=== PATIENT | male | born 1960 | race Caucasian/White ===

== ENCOUNTER 2016-09-27 09:38 | Observation (INO) | payer OTHER ==
[2016-09-27] VITALS (10 sets, daily range): BP systolic 86–168; BP diastolic 48–76; PULSE 64–103; RESP 18–20; TEMP 97.1–98.4; O2SAT 95–98
[~2016-09-27] VITALS: Ht 167.6 cm; Wt 86.4 kg
[~2016-09-27 09:38] MED LIST: ALBU6.7H INH; ASPI81TA82 PO; CIPR500T4 PO; NORV10TA PO
[2016-09-27] MEDS ORDERED: methylPREDNISolone SOD SUCC 125 MG/2 ML VIAL IVP ONE (10:00)
[2016-09-27] MEDS ORDERED: NITR1SUB3 SL (10:00)
[2016-09-27] MEDS ORDERED: SODIUM CHLORIDE 0.9% FLUSH 10 ML FLUSH IVF PRN (10:00)
[2016-09-27] MEDS ORDERED: LIPI80TA PO (10:00)
[2016-09-27] MEDS ORDERED: ASPI325T PO (10:00)
[2016-09-27] MEDS ORDERED: ASPIRIN 81 MG CHEW TAB PO ONE (10:00)
[2016-09-27] MEDS ORDERED: HTN PO (10:00)
[2016-09-27] MEDS ORDERED: FLUT1SPR5 EACH NARE (10:00)
[2016-09-27] MEDS ORDERED: MEDR4PAK PO (10:00)
[2016-09-27] MEDS ORDERED: MORPHINE SULFATE 4 MG/ML INJ IV PUSH ONE (10:00)
--- NOTE | 2016-09-27 10:04 | PD ---
HPI . Left upper extremity tingling and weakness Chief Complaint: Chest Pain Time Seen by Provider: 09:46 Travel History International Travel<30 days: No Contact w/Intl Traveler<30days: No Traveled to known affect area: No History of Present Illness HPI Patient presents with a 2 day history of tingling and weakness in the left upper extremity. It has progressed to involve the left side of his face. He is also complaining with chest pain and shortness of breath. He is nauseous. He is lightheaded. He states that he feels like he is freezing and shaking. The symptoms have grown progressively worse over the last 2 days. He states that his current chest pain is 3.5/10. He has a history of COPD. He states that he has not used his MDI or nebulizer machine today. [id number]: Chest upper extremity, face QUALITY: Numbness and SEVERITY: 3.5/10 DURATION: 2 days TIMING: Progressively worsening MODIFYING FACTORS: Unrelieved by nitroglycerin ASSOCIATED SYMPTOMS: Nausea, lightheadedness, shaking/freezing PFSH Past Medical History Asthma: Yes Cardiac Catheterization: Yes Cardiovascular Problems: Yes High Cholesterol: Yes COPD: Yes Coronary Artery Disease: Yes Diabetes: Yes (borderline) Patient Takes Glucophage: No Diminished Hearing: No GERD: Yes Hypertension: Yes Medical other: Yes (SINUSITITS) Myocardial Infarction: Yes Tetanus Vaccination: < 5 Years Influenza Vaccination: No Past Surgical History Cardiac Surgery: Yes (STENTS X5) Coronary Stent: Yes (X5) Tonsillectomy: Yes Social History Alcohol Use: No (DENIES) Tobacco Use: Yes (1.5 PPD) Substance Use: No Allergies-Medications (Allergen,Severity, Reaction): Coded Allergies: No Known Allergies (Unverified , 09/27/16) Reported Meds & Prescriptions Reported Meds & Active Scripts Active Reported [Htn] 1 Tab PO DAILY Medrol Dosepak (Methylprednisolone) 4 Mg Dspk 4 Mg PO DIRECTED Per Pharmacist direction Flonase Nasal [place] (Fluticasone Nasal [place]) 50 Mcg/Act [place] 50 Mcg EACH NARE BID Lipitor (Atorvastatin Calcium) 80 Mg Tab 80 Mg PO BID Nitroglycerin SL (Nitroglycerin) 0.4 Mg Subl 0.4 Mg SL DIRECTED PRN ONE TABLET UNDER THE TONGUE NEEDED FOR CHEST PAIN, MAY REPEAT EVERY FIVE MINUTES FOR A TOTAL OF 3 DOSES OR CALL 911 IF NO RELIEF Aspirin 325 Mg Tab 325 Mg PO DAILY Review of Systems Except as stated in HPI: all other systems reviewed are Neg General / Constitutional: Positive: Fever, Chills HENT: Positive: Lightheadedness, No: Headaches Cardiovascular: Positive: Chest Pain or Discomfort Respiratory: Positive: Shortness of Breath, No: Cough Gastrointestinal: Positive: Nausea, No: Vomiting, Diarrhea Genitourinary: No: Urgency, Frequency, Dysuria Neurologic: Positive: Weakness, Focal Abnormalities, Paresthesia, No: Slurred Speech Physical Exam Narrative GENERAL: Awake and alert and in no acute distress. SKIN: Warm and dry. HEAD: Atraumatic. Normocephalic. EYES: Pupils equal and round. Extraocular movements are intact. ENT: No nasal bleeding or discharge. Mucous membranes pink and moist. NECK: Trachea midline. Neck is supple. CARDIOVASCULAR: Regular rate and rhythm. Heart sounds are normal. RESPIRATORY: No accessory muscle use. Lungs have diffuse expiratory wheezing. GASTROINTESTINAL: Abdomen soft, non-tender, nondistended. MUSCULOSKELETAL: No obvious deformities. No edema. NEUROLOGICAL: Awake and alert. No obvious cranial nerve deficits. Motor grossly within normal limits. Normal speech. He has full and equal motor strength in all muscle groups of the upper extremities. Jcafma-ekcw-cnenfk exam is intact bilaterally. PSYCHIATRIC: Appropriate mood and affect; insight and judgment normal. Data Data Last Documented VS Vital Signs Date Time Temp Pulse Resp B/P Pulse Ox O2 Delivery O2 Flow Rate FiO2 09/27/16 11:30 98.0 76 18 99/48 95 Room Air Orders Basic Metabolic Panel (Bmp) (09/27/16 09:55) Ckmb (Isoenzyme) Profile (09/27/16 09:55) Complete Blood Count With Diff (09/27/16 09:55) Magnesium (Mg) (09/27/16 09:55) Prothrombin Time / Inr (Pt) (09/27/16 09:55) Act Partial Throm Time (Ptt) (09/27/16 09:55) Troponin I (09/27/16 09:55) Chest, Single Ap (09/27/16 09:55) Ecg Monitoring (09/27/16 09:55) Bilateral Bp Monitoring (09/27/16 09:55) Iv Access Insert/Monitor (09/27/16 09:55) Oximetry (09/27/16 09:55) Oxygen Administration (09/27/16 09:55) Morphine Inj (Morphine Inj) (09/27/16 10:00) Sodium Chloride 0.9% Flush (Ns Flush) (09/27/16 10:00) Nitroglycerin Sl (Nitrostat Sl) (09/27/16 10:00) Ct Brain W/O Iv Contrast(Rout) (09/27/16 09:55) Methylprednisolone So Succ Inj (Solumedr (09/27/16 10:00) Albuterol-Ipratropium Neb (Duoneb Neb) (09/27/16 10:00) Electrocardiogram (09/27/16 ) Chest, Pa & Lat (09/27/16 10:49) Admit Order (Ed Use Only) (09/27/16 12:27) Labs Laboratory Tests Test 09/27/16 10:00 White Blood Count 12.5 TH/MM3 Red Blood Count 5.24 MIL/MM3 Hemoglobin 14.5 GM/DL Hematocrit 45.0 % Mean Corpuscular Volume 86.0 FL Mean Corpuscular Hemoglobin 27.8 PG Mean Corpuscular Hemoglobin 32.3 % Concent Red Cell Distribution Width 14.9 % Platelet Count 309 TH/MM3 Mean Platelet Volume 8.4 FL Neutrophils (%) (Auto) 68.1 % Lymphocytes (%) (Auto) 23.6 % Monocytes (%) (Auto) 6.5 % Eosinophils (%) (Auto) 1.3 % Basophils (%) (Auto) 0.5 % Neutrophils # (Auto) 8.4 TH/MM3 Lymphocytes # (Auto) 3.0 TH/MM3 Monocytes # (Auto) 0.8 TH/MM3 Eosinophils # (Auto) 0.2 TH/MM3 Basophils # (Auto) 0.1 TH/MM3 CBC Comment DIFF FINAL Differential Comment Prothrombin Time 9.9 SEC Prothromb Time International 0.9 RATIO Ratio Activated Partial 25.1 SEC Thromboplast Time Sodium Level 144 MEQ/L Potassium Level 3.8 MEQ/L Chloride Level 107 MEQ/L Carbon Dioxide Level 27.7 MEQ/L Anion Gap 9 MEQ/L Blood Urea Nitrogen 14 MG/DL Creatinine 1.20 MG/DL Estimat Glomerular Filtration 63 ML/MIN Rate Random Glucose 129 MG/DL Calcium Level 8.5 MG/DL Magnesium Level 2.4 MG/DL Total Creatine Kinase 78 U/L Troponin I LESS THAN 0.02 NG/ML Exceptions Acute Myocardial Infarction ASA Not Given on Arrival: Already taken by patient MDM Medical Decision Making Medical Screen Exam Complete: Yes Emergency Medical Condition: Yes Medical Record Reviewed: Yes (patient had a chest pain evaluation done in January 2015. He had a negative Lexiscan stress test and a negative myocardial perfusion scan.) Interpretation(s) EKG shows a normal sinus rhythm with a right bundle branch block. It is unchanged from previous. Differential Diagnosis Differential diagnosis of chest pain includes but is not limited to musculoskeletal pain, pulmonary embolism, acute coronary syndrome, pneumonia, pleurisy My differential diagnosis of paresthesias includes but is not limited to anxiety , radiculopathy, peripheral neuropathy, peripheral vascular disease, compartment syndrome Narrative Course Patient presents with what seems to be 2 problems. He has chest pain and shortness of breath. He also has weakness and paresthesias of the left side of his face and left upper extremity. He does not have any demonstrable neurological findings. CBC & BMP Diagram 09/27/16 10:00 Cardiac enzymes are negative. Last Impressions Head CT 09/27/1684 Signed Impressions: Service Date/Time: Tuesday, September 27, 2016 10:00 - CONCLUSION: Normal examination. Rohit Orantes MD Chest X-Ray 09/27/1637 Signed Impressions: Service Date/Time: Tuesday, September 27, 2016 10:02 - CONCLUSION: Hazy basilar parenchymal opacities. Follow up with good quality PA and lateral views of the chest versus additional evaluation with CT may be beneficial. Rohit Orantes MD The chest x-ray was independently viewed by me. I will have x-ray do a PA and lateral exam in department. PA/lat CXR>>No acute cardiopulmonary findings. Patient reports that his symptoms are 100% relieved with nitroglycerin. I will admit him to the chest pain center. Physician Communication Physician Communication Dr. Frausto will admit to [facility] Diagnosis Primary Impression: Chest pain Qualified Code: R07.9 - Chest pain, unspecified type Admitting Information Admitting Physician Requests: Observation Condition: Stable Stefani Castañeda MD Sep 27, 2016 10:04
[2016-09-27] MEDS: NITROGLYCERIN 0.4 MG SL 25 TABS/BTL SL SCH ×3 (10:10→10:31)
[2016-09-27] MEDS: RESP: ALBUTEROL 2.5 MG/IPRATROPIUM 0.5 MG NEB (SCH) INH (10:16)
[2016-09-27 10:17] LABS: AUTOMATED NEUTROPHIL # 8.4 TH/MM3 (1.8-7.7); BASOPHIL # 0.1 TH/MM3 (0-0.2); BASOPHIL % 0.5 % (0.0-2.0); EOSINOPHIL # 0.2 TH/MM3 (0-0.4); EOSINOPHIL % 1.3 % (0.0-4.0); HEMO FLAGS DIFF FINAL; LYMPH % 23.6 % (9.0-44.0); MEAN CORPUSCULAR HEMOGLOBIN 27.8 PG (27.0-34.0); MEAN CORPUSCULAR HGB CONC 32.3 % (32.0-36.0); MONO % 6.5 % (0.0-8.0); NEUT % 68.1 % (16.0-70.0); PLATELET COUNT 309 TH/MM3 (150-450); RED BLOOD COUNT 5.24 MIL/MM3 (4.50-5.90); RED CELL DISTRIBUTION WIDTH 14.9 % (11.6-17.2); WHITE BLOOD COUNT 12.5 TH/MM3 (4.0-11.0)
--- NOTE | 2016-09-27 10:17 | RADHPO ---
EXAM DATE/TIME: 09/27/2016 10:02 [facility] COMPARISON: CHEST SINGLE AP, December 20, 2014, 22:16. CHEST SINGLE AP, February 07, 2015, 15:44. INDICATIONS : Chest pain. MEDICAL HISTORY : Myocardial infarction. Angina. Hypercholesterolemia. CAD. COPD. Hypertenison. Asthma. GERD. Diab etic. SURGICAL HISTORY : Tonsillectomy. Artificial ear drum. Adenoids. Cardiac cath. Cardiac stents x 5. ENCOUNTER: Initial ACUITY: 1 day PAIN SCORE: 4/10 LOCATION: chest FINDINGS: There are hazy basilar opacities and there is slight blunting of the costophrenic angles. Appearance is similar to most recent prior, however not fully explained and different than on older comparison e xams. Differential possibilities would include infiltrate/effusion, pleural or parenchymal scarring v ersus epicardial or subpleural fat deposition. Mass process felt very unlikely. The appearance may in part be exacerbated by lordotic projection. The upper lung mi are clear. The visualized cardiac contours are otherwise satisfactory. Pulmonary vascular is normal. CONCLUSION: Hazy basilar parenchymal opacities. Follow up with good quality PA and lateral views of the chest diane loretta additional evaluation with CT may be beneficial. Rohit Orantes MD on September 27, 2016 at 10:11 Board Certified Radiologist. This report was verified electronically.
[2016-09-27 10:23] LABS: CHLORIDE 107 MEQ/L (98-107); POTASSIUM 3.8 MEQ/L (3.5-5.1); SODIUM (NA) 144 MEQ/L (136-145)
--- NOTE | 2016-09-27 10:24 | RADHPO ---
EXAM DATE/TIME: 09/27/2016 10:00 [facility] COMPARISON: CT BRAIN W/O CONTRAST, December 20, 2014, 22:42. CHEST SINGLE AP, September 27, 2016, 10:02. INDICATIONS : Headache. Dizziness. General weakness. RADIATION DOSE: 61.82 CTDIvol (mGy) MEDICAL HISTORY : Hypertension. SURGICAL HISTORY : None. ENCOUNTER: Initial ACUITY: 4 - 6 months PAIN SCALE: 0/10 LOCATION: cranial TECHNIQUE: Multiple contiguous axial images were obtained of the head. Using automated exposure control and adj ustment of the mA and/or kV according to patient size, radiation dose was kept as low as reasonably a chievable to obtain optimal diagnostic quality images. FINDINGS: CEREBRUM: The ventricles are normal for age. No evidence of midline shift, mass lesion, hemorrhage or acute in farction. No extra-axial fluid collections are seen. POSTERIOR FOSSA: The cerebellum and brainstem are intact. The 4th ventricle is midline. The cerebellopontine angle i s unremarkable. EXTRACRANIAL: The visualized portion of the orbits is intact. SKULL: The calvaria is intact. No evidence of skull fracture. CONCLUSION: Normal examination. Rohit Orantes MD on September 27, 2016 at 10:17 Board Certified Radiologist. This report was verified electronically.
[2016-09-27 10:26] LABS: ANION GAP 9 MEQ/L (5-15); BICARBONATE 27.7 MEQ/L (21.0-32.0); BLOOD UREA NITROGEN 14 MG/DL (7-18); MAGNESIUM 2.4 MG/DL (1.5-2.5)
[2016-09-27 10:27] LABS: APTT (PATIENT) 25.1 SEC (24.3-30.1); INTERNATIONAL NORMALIZED RATIO 0.9 RATIO; PROTHROMBIN TIME - PATIENT 9.9 SEC (9.8-11.6)
[2016-09-27 10:30] LABS: GLOMERULAR FILTRATION RATE 63 ML/MIN (>89)
[2016-09-27 10:35] LABS: CREATINE KINASE 78 U/L (39-308)
--- NOTE | 2016-09-27 11:40 | RADHPO ---
EXAM DATE/TIME: 09/27/2016 11:10 [facility] COMPARISON: CHEST SINGLE AP, September 27, 2016, 10:02. INDICATIONS : Chest pain, syncope. MEDICAL HISTORY : Myocardial infarction. Angina. Hypercholesterolemia. CAD. COPD. Smoker. SURGICAL HISTORY : Tonsillectomy. Artificial ear drum. Adenoids. Cardiac cath. Cardiac stents x ENCOUNTER: Initial ACUITY: 2 days PAIN SCORE: 2/10 LOCATION: Left lower chest FINDINGS: PA and lateral views of the chest demonstrate the lungs to be symmetrically aerated without evidence of mass, infiltrate or effusion. The cardiomediastinal contours are unremarkable. Osseous structure s are intact. CONCLUSION: 1. No acute cardiopulmonary findings. Ibrahima King MD on September 27, 2016 at 11:37 Board Certified Radiologist. This report was verified electronically.
[2016-09-27] MEDS ORDERED: MORPHINE SULFATE 4 MG/ML INJ IV PRN (12:45)
[2016-09-27] MEDS ORDERED: ACETAMINOPHEN 500 MG CPLT PO PRN (12:45)
[2016-09-27] MEDS ORDERED: SODIUM CHLORIDE 0.9% FLUSH 10 ML FLUSH IV FLUSH PRN (12:45)
[2016-09-27] MEDS ORDERED: NITROGLYCERIN 0.4 MG SL 25 TABS/BTL SL PRN (12:45)
[2016-09-27] MEDS ORDERED: ONDANSETRON HCL 4 MG/2 ML VIAL IV PRN (12:45)
[2016-09-27] MEDS ORDERED: ACETAMINOPHEN/HYDROcodone 325 MG/7.5 MG TAB PO PRN (12:45)
[2016-09-27 13:35] LABS: CREATINE KINASE 63 U/L (39-308)
--- NOTE | 2016-09-27 13:48 | EKG ---
Date Performed: 09/27/2016 Time Performed: 09:40:42 PTAGE: 55 years EKG: Sinus rhythm Rightward axis Right bundle branch block Lateral ST changes are nonspecific Abnormal ECG Compared to prior tracing no significant change PREVIOUS TRACING : 02/07/2015 23.11 DOCTOR: Yung Conrad Interpretating Date/Time 09/27/2016 13:41:54
[2016-09-27 17:04] LABS: CREATINE KINASE 60 U/L (39-308)
--- NOTE | 2016-09-27 18:38 | HHI.HP ---
[facility] Primary Care Physician Non-Staff Admission Diagnosis chest pain Diagnoses: (1) Neurological symptoms Diagnosis: Principal (2) Chest pain Diagnosis: Principal (3) Leukocytosis Diagnosis: Principal (4) HTN (hypertension) Diagnosis: Principal (5) Tobacco abuse Diagnosis: Principal Chief Complaint: numbness, tingling lip and L arm; chest pain Travel History International Travel<30 Days: No Contact w/Intl Traveler <30 Da: No Traveled to Known Affected Are: No History of Present Illness 55-year-old male with history of CAD, hyperlipidemia, COPD is admitted to chest pain center, although primary complaint is neurological. Patient states that since Friday he has had numbness and tingling over the left lower lip, and he felt like his lip was drooping and he was drooling. He also had numbness in the left arm extending from the elbow to the shoulder as well as cramping in the left fingers and some left wrist pain. He states he woke up and it was worse. He states he had weakness in the left arm yesterday and it is not as bad today. Denies any neck issues. Patient also admits to having headaches, dizziness, and blurred vision for the past year and states he has been waiting to see a neurologist in February. He states that he has headaches every day some of which is related to his sinuses with pain over the frontal bone. He additionally is dealing with a left ear infection stating he came off of antibiotics but is still being treated with Flonase and prednisone. Denies altered speech. Denies neck issues. Also has burning pain in the left thigh and left foot which is chronic. Patient denies history of TIA or stroke. He states he had chest pain which started yesterday afternoon with intermittent episodes lasting from a few seconds to less than 1 minute. He describes the quality alternating from sharp and stabbing to squeezing to a shocklike sensation over the left breast. He denies taking nitroglycerin or any medication at home to help the chest pain but states lying on his right side helped alleviated the pain whereas exertion made it worse. States he had some nausea but no vomiting associated with chest pain. He admits to having shortness of breath as well as having dyspnea on exertion but states this is chronic related to his COPD. He states he had a recent chest x-ray by his primary care physician who told him that he advanced stage COPD. Patient admits to a chronic cough but denies any increased mucus production from baseline. Patient states with his first MN he just felt hot and numbness in his left jaw and the second time he did not have obvious symptoms. He feels the chest pain may be related to his COPD, but patient denies getting chest pain regularly. Patient does not have a current reprint sorter. He does state his most recent stress test, nuclear, was at [facility] in [facility] in February 2016 and was negative. Review of Systems Constitutional: COMPLAINS OF: Chills, Dizziness Eyes: COMPLAINS OF: Blurred vision Ears, nose, mouth, throat: COMPLAINS OF: Sinus Pain Respiratory: COMPLAINS OF: Cough (chronic), Sputum production (chronic), Shortness of breath Cardiovascular: COMPLAINS OF: Chest pain, Dyspnea on Exertion, Lower Extremity Edema Gastrointestinal: COMPLAINS OF: Nausea, DENIES: Constipation, Diarrhea, Vomiting Genitourinary: DENIES: Dysuria Musculoskeletal: DENIES: Neck pain Integumentary: DENIES: Rash Neurologic: COMPLAINS OF: Headache, Localized weakness, Paresthesias MUSCULOSKELETAL: +Cramping L fingers Past Family Social History Past Medical History Coronary artery disease, MN 2 Hyperlipidemia, recent LDL 117 COPD Left ear infection, sinus issues Recent hemoglobin A1c 5.2 Past Surgical History 5 coronary artery stents, last placed in 2010 Tonsillectomy and adenoidectomy Reported Medications Lisinopril Unknown dose (possibly 10 mg per patient) 1 Tab PO DAILY Medrol Dosepak (Methylprednisolone) 4 Mg Dspk 4 Mg PO DIRECTED Per Pharmacist direction Flonase Nasal [place] (Fluticasone Nasal [place]) 50 Mcg/Act [place] 50 Mcg EACH NARE BID Lipitor (Atorvastatin Calcium) 40 Mg Tab 40 Mg PO BID Nitroglycerin SL (Nitroglycerin) 0.4 Mg Subl 0.4 Mg SL DIRECTED PRN ONE TABLET UNDER THE TONGUE NEEDED FOR CHEST PAIN, MAY REPEAT EVERY FIVE MINUTES FOR A TOTAL OF 3 DOSES OR CALL 911 IF NO RELIEF Aspirin 325 Mg Tab 325 Mg PO DAILY Allergies: Coded Allergies: No Known Allergies (Unverified , 09/27/16) Family History Mother: Diabetes, heart problems including MIs. Father: Alcoholic, of cirrhosis. Social History Patient smokes 1.5 packs per day of cigarettes. Denies alcohol use. Denies history of illicit drug use. Physical Exam Vital Signs Vital Signs Date Time Temp Pulse Resp B/P Pulse Ox O2 Delivery O2 Flow Rate FiO2 09/27/16 16:00 97.1 86 20 123/72 95 09/27/16 14:00 97.2 64 18 110/62 96 09/27/16 12:40 84 18 117/62 95 Room Air 09/27/16 11:30 98.0 76 18 99/48 95 Room Air 09/27/16 10:55 76 18 95 Room Air 09/27/16 10:46 103 86/48 09/27/16 10:29 93 136/61 09/27/16 10:20 95 21 09/27/16 10:19 155/74 140/71 09/27/16 10:01 98 Room Air 09/27/16 09:52 98.4 86 20 168/76 98 Room Air 09/27/16 09:52 86 98 Room Air Physical Exam GENERAL: This is a well-nourished, well-developed patient, in no apparent distress. SKIN: No rashes, ecchymoses or lesions. Warm and dry. HEAD: Atraumatic. Normocephalic. EYES: Pupils equal round and reactive. Extraocular motions intact. No scleral icterus. No injection or drainage. ENT: Throat without erythema or exudate. Uvula midline. Airway patent. NECK: Trachea midline. No carotid bruits. Full flexion, extension, and lateral rotation in either direction. CARDIOVASCULAR: Regular rate and rhythm without murmurs, gallops, or rubs. RESPIRATORY: Clear to auscultation, but significantly diminished. Breath sounds equal bilaterally. No wheezes, rales, or rhonchi. GASTROINTESTINAL: Abdomen soft, non-tender, nondistended. No guarding. MUSCULOSKELETAL: Trace lower extremity edema bilaterally. NEUROLOGICAL: Awake and alert. Cranial nerves II through XII intact. Motor grossly within normal limits. Five out of 5 muscle strength in bilateral hands and arms. Gross sensation decreased over the lateral aspect of the left forearm compared to right. 5/5 strength right quadriceps. 4/5 strength left quadriceps. Sensation grossly intact over bilateral lower legs. Normal speech. Negative pronator drift. PSYCHIATRIC: Patient was frustrated right as I walked in the room, but mood was relatively normal and patient cooperative during interview and exam. Laboratory Laboratory Tests Test 09/27/16 09/27/16 09/27/16 10:00 12:50 15:53 White Blood Count 12.5 Red Blood Count 5.24 Hemoglobin 14.5 Hematocrit 45.0 Mean Corpuscular Volume 86.0 Mean Corpuscular Hemoglobin 27.8 Mean Corpuscular Hemoglobin 32.3 Concent Red Cell Distribution Width 14.9 Platelet Count 309 Mean Platelet Volume 8.4 Neutrophils (%) (Auto) 68.1 Lymphocytes (%) (Auto) 23.6 Monocytes (%) (Auto) 6.5 Eosinophils (%) (Auto) 1.3 Basophils (%) (Auto) 0.5 Neutrophils # (Auto) 8.4 Lymphocytes # (Auto) 3.0 Monocytes # (Auto) 0.8 Eosinophils # (Auto) 0.2 Basophils # (Auto) 0.1 CBC Comment DIFF FINAL Differential Comment Prothrombin Time 9.9 Prothromb Time International 0.9 Ratio Activated Partial 25.1 Thromboplast Time Sodium Level 144 Potassium Level 3.8 Chloride Level 107 Carbon Dioxide Level 27.7 Anion Gap 9 Blood Urea Nitrogen 14 Creatinine 1.20 Estimat Glomerular Filtration 63 Rate Random Glucose 129 Calcium Level 8.5 Magnesium Level 2.4 Total Creatine Kinase 78 63 60 Troponin I LESS THAN 0.02 LESS THAN 0.02 LESS THAN 0.02 Result Diagram: 09/27/16 1000 09/27/16 1000 Imaging Last Impressions Chest X-Ray 09/27/16 1049 Signed Impressions: Service Date/Time: Tuesday, September 27, 2016 11:10 - CONCLUSION: 1. No acute cardiopulmonary findings. Ibrahima King MD Head CT 09/27/16 0955 Signed Impressions: Service Date/Time: Tuesday, September 27, 2016 10:00 - CONCLUSION: Normal examination. Rohit Orantes MD Assessment and Plan Assessment and Plan 55 year old male with: Neurological symptoms: Numbness and tingling in the left lower lip with subjective drooping and drooling along with numbness in the left arm, cramping in the left fingers, and left upper extremity weakness. Patient also has chronic headaches and dizziness as well as blurred vision for the past year. He has not yet seen a neurologist. He has mild decreased sensation over the left forearm. Upper extremity strength is intact. He has decreased strength in the left leg which he states is chronic. No cranial nerve deficits noted. -CT of the head in ED personally interpreted with no acute abnormality. -MRI and MRA brain, MRA neck, and Echo to be ordered. -Neurology consult Chest pain: Atypical regarding duration and changing quality although patient states it is worse with exertion. -EKGs 3 personally interpreted with sinus rhythm, rightward axis, and right bundle branch block appears similar to 02/07/15. No obvious ischemic changes noted. -Chest x-ray personally interpreted with no acute abnormality. -Continue home 325 mg daily aspirin -Patient states he had a negative nuclear stress test at [facility] in February 2016 which is about 7 months ago. He had a nuclear stress test performed here in January 2015 which was negative. Patient does not have a current reprint sorter but there is not an indication to repeat stress test since he had recent one ~ 7 months ago. Will obtain record of stress test from [facility]. Leukocytosis: Mild 12.5, likely stress reaction. Afebrile. Chest x-ray clear. HTN: BP 168/76 on arrival then became hypotensive due to nitroglycerin. Blood pressure normalized currently. -Verify lisinopril dose patient's pharmacy and continue. HLD: Continue atorvastatin 40 mg twice a day. GI prophylaxis: Pepcid daily. DVT prevention: TEDs/SCDs When I went back to tell the patient that a neurology workup would be performed , he was trying to order dinner and was being told by dietary that he already had dinner. The patient was very visibly upset. He immediately stood up and stated that he wants to go home so he can eat when he wants. I informed the patient that we would be performing MRI and MRAs of his head and neck as well as obtaining a neurology consult but he still desires to sign out AGAINST MEDICAL ADVICE. I informed the patient he could be at risk of MN, stroke, or . Patient signed out. Studies have not been ordered. Discussed Condition With Dr. Frausto, attending Problem Qualifiers (1) Chest pain: Qualified Code: R07.9 - Chest pain, unspecified type Jennifer Koch Sep 27, 2016 18:38 Dinesh Frausto MD Sep 27, 2016 23:50
[2016-09-27] MEDS ORDERED: ATORVASTATIN 80 MG TAB PO SCH (21:00)
[2016-09-27] MEDS ORDERED: FAMOTIDINE 20 MG TAB PO SCH (21:00)
[2016-09-27] MEDS ORDERED: FLUTICASONE PROPIONATE 50 MCG/ACT 16 GM NASAL SPRAY EACH NARE SCH (21:00)
[2016-09-28] MEDS ORDERED: PNEUMOCOCCAL POLYVALENT INJ 25 MCG/0.5 ML SYR IM ONE (09:00)
[2016-09-28] MEDS ORDERED: ASPIRIN 325 MG TAB PO SCH (09:00)
[2016-09-28] MEDS ORDERED: INFLUENZA VIRUS VACCINE (QUADRIVALENT) 0.5 ML SYR IM ONE (10:00)
--- NOTE | 2016-09-29 14:00 | EKG ---
Date Performed: 09/27/2016 Time Performed: 15:47:16 PTAGE: 55 years EKG: Sinus rhythm . Right bundle branch block Abnormal ECG PREVIOUS TRACING : 09/27/2016 12.47 Since previous tracing, no significant change noted DOCTOR: Gary Foster Interpretating Date/Time 09/29/2016 13:59:51
--- NOTE | 2016-09-29 14:06 | EKG ---
Date Performed: 09/27/2016 Time Performed: 12:47:30 PTAGE: 55 years EKG: Sinus rhythm Right bundle branch block Abnormal ECG PREVIOUS TRACING : 09/27/2016 09.40 Since previous tracing, no significant change noted DOCTOR: Gary Foster Interpretating Date/Time 09/29/2016 14:05:32
== END 2016-09-27 18:50 | disposition left against medical advice (07) ==
LOC: PHED 09:38 → PHEDA 12:28 → PH3A 13:46
PROVIDERS: ADMIT Internal Medicine; ATTEND Internal Medicine
DX: R07.89 Other chest pain (principal); R20.2 Paresthesia of skin; R20.0 Anesthesia of skin; R51 Headache; R53.1 Weakness; R94.31 Abnormal electrocardiogram [ECG] [EKG]; D72.829 Elevated white blood cell count, unspecified; I10 Essential (primary) hypertension; E78.5 Hyperlipidemia, unspecified; I95.9 Hypotension, unspecified; I25.10 Atherosclerotic heart disease of native coronary artery without angina pectoris; J44.9 Chronic obstructive pulmonary disease, unspecified; I25.2 Old myocardial infarction; Z95.5 Presence of coronary angioplasty implant and graft; Z79.82 Long term (current) use of aspirin; F17.210 Nicotine dependence, cigarettes, uncomplicated; E78.00 Pure hypercholesterolemia, unspecified; K21.9 Gastro-esophageal reflux disease without esophagitis; Z79.51 Long term (current) use of inhaled steroids
CPT/HCPCS: 70450; 71010; 71020; 80048; 82550; 83735; 84484; 85025; 85610; 85730; 93005; 94640; 94664; 96374; 96375; 99285; G0378; J2270; J2930